=== PATIENT | female | born 1980 | race Caucasian/White ===

== ENCOUNTER 2016-06-23 16:25 | Emergency (ER) | payer BC, OTHER ==
[~2016-06-23] VITALS: Ht 154.9 cm; Wt 68.0 kg
[2016-06-23] MEDS ORDERED: FENT1PAT11 (16:41)
[2016-06-23] MEDS ORDERED: PROM25TA14 (16:41)
[2016-06-23] MEDS ORDERED: OXYC-471 (16:41)
[2016-06-23] MEDS ORDERED: fentaNYL INJECTION 100 MCG/2 ML AMP IVP STA (16:54)
[2016-06-23] MEDS ORDERED: NS IV 1000 ML 1,000 ML IV ONE (16:54)
[2016-06-23] MEDS ORDERED: KETOROLAC 30 MG/ML VIAL IVP STA (16:54)
--- NOTE | 2016-06-23 17:02 | ED Chest Pain ---
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 She is unsure of what the cause is. She does have chronic pain to the left knee and she is on fentanyl and Percocet. 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 She is currently not on any anticoagulation. States the pain is severe and is unable to sit on the bed hardly. She is very tender to touch. Patient is very choosy in her care and her is questioning evaluation and recommendations but ultimately both decided on continuing with evaluation. Timing/Duration: 1 week, getting worse Severity/Quality: moderate, severe Location: central Radiation: back Activities at Onset: none Prior CP/Workup: pulmonary embolism ASA po PERSONAL LINES UNDERWRITER: No NTG SL PERSONAL LINES UNDERWRITER: No Associated Symptoms: No abdominal pain, back pain, No fever/chills, No nausea/ vomiting, No shortness of breath, No weakness (ESPINOZA MAE MD) Allergies and Home Medications Allergies Coded Allergies: Penicillins (Verified Allergy, Unknown, 04/17/09) Home Medications Fentanyl 1 Each Patch.td72, #10 (Reported) Oxycodone HCl/Acetaminophen 1 Each Tablet, #90 (Reported) Promethazine HCl 25 Mg Tablet, #30 (Reported) Review of Systems Constitutional: see HPI, No chills, No fever EENTM: No Symptoms Reported Respiratory: No Symptoms Reported Cardiovascular: See HPI, Chest Pain, Denies Edema Gastrointestinal: Denies Abdominal Pain, Denies Nausea, Denies Vomiting Genitourinary: No Symptoms Reported Musculoskeletal: no symptoms reported Psychiatric/Neurological: Anxiety, Denies Weakness (ESPINOZA MAE MD) All Other Systems Reviewed Negative Unless Noted: Yes (ESPINOZA MAE MD) Past Fqpugtq-Fdxeeu-Fdrvte Hx Patient Social History Alcohol Use: Denies Use Recreational Drug Use: No Smoking Status: Never a Smoker Type Used: Cigarettes Recent Foreign Travel: No Contact w/Someone Who Travel: No Recent Infectious Disease Expo: No (ESPINOZA MAE MD) Surgeries HX Surgeries: Yes Surgeries: Gallbladder, Hysterectomy, Orthopedic (ESPINOZA MAE MD) Respiratory Hx Respiratory Disorders: Yes Respiratory Disorders: Pulmonary Embolism (ESPINOZA MAE MD) Cardiovascular Hx Cardiac Disorders: No (ESPINOZA MAE MD) Neurological Hx Neurological Disorders: No (ESPINOZA MAE MD) Reproductive System Hx Reproductive Disorders: Yes (ESPINOZA MAE MD) Genitourinary Hx Genitourinary Disorders: No (ESPINOZA MAE MD) Gastrointestinal Hx Gastrointestinal Disorders: No (ESPINOZA MAE MD) Musculoskeletal Hx Musculoskeletal Disorders: No (ESPINOZA MAE MD) Endocrine Hx Endocrine Disorders: Yes (ESPINOZA MAE MD) HEENT HX ENT Disorders: No (ESPINOZA MAE MD) Psychosocial Hx Psychiatric Problems: No (ESPINOZA MAE MD) Blood Transfusions Hx Blood Disorders: No (ESPINOZA MAE MD) Reviewed Nursing Assessment Reviewed/Agree w Nursing PMH: Yes (ESPINOZA MAE MD) Family Medical History Significant Family History: No Pertinent Family Hx (ESPINOZA MAE MD) Physical Exam Vital Signs Vital Sign - Last 12Hours 06/23/16 16:38 Temp 98.4 Pulse 93 Resp 16 B/P (MAP) 136/98 Pulse Ox 96 O2 Delivery Room Air (ISABELL TAVARES DO) Vital Signs Capillary Refill : Less Than 3 Seconds (ESPINOZA MAE MD) General Appearance: WD/WN, Moderate Distress (pain related) HEENT: PERRL/EOMI, Pharynx Normal Neck: Non Tender, Supple Respiratory: Lungs Clear, Normal Breath Sounds, Other (very tender to the anterior left chest wall and posterior left chest wall) Cardiovascular: Regular Rate, Rhythm, No Murmur Gastrointestinal: Non Tender, Soft Extremity: Normal Range of Motion, Non Tender Neurologic/Psychiatric: Alert, Oriented x3 Skin: Normal Color, Warm/Dry (ESPINOZA MAE MD) Progress/Results/Core Measures Results/Orders Lab Results Laboratory Tests Test 06/23/16 17:00 Range/Units White Blood Count 5.4 4.3-11.0 10^3/uL Red Blood Count 5.42 4.35-5.85 10^6/uL Hemoglobin 15.1 11.5-16.0 G/DL Hematocrit 44 35-52 % Mean Corpuscular Volume 81 80-99 FL Mean Corpuscular Hemoglobin 28 25-34 PG Mean Corpuscular Hemoglobin Concent 34 32-36 G/DL Red Cell Distribution Width 12.5 10.0-14.5 % Platelet Count 209 130-400 10^3/uL Mean Platelet Volume 9.8 7.4-10.4 FL Neutrophils (%) (Auto) 59 42-75 % Lymphocytes (%) (Auto) 32 12-44 % Monocytes (%) (Auto) 9 0-12 % Eosinophils (%) (Auto) 0 0-10 % Basophils (%) (Auto) 0 0-10 % Neutrophils # (Auto) 3.1 1.8-7.8 X 10^3 Lymphocytes # (Auto) 1.7 1.0-4.0 X 10^3 Monocytes # (Auto) 0.5 0.0-1.0 X 10^3 Eosinophils # (Auto) 0.0 0.0-0.3 10^3/uL Basophils # (Auto) 0.0 0.0-0.1 10^3/uL Sodium Level 144 135-145 MMOL/L Potassium Level 3.2 L 3.6-5.0 MMOL/L Chloride Level 105 98-107 MMOL/L Carbon Dioxide Level 31 21-32 MMOL/L Anion Gap 8 5-14 MMOL/L Blood Urea Nitrogen 4 L 7-18 MG/DL Creatinine 0.85 0.60-1.30 MG/DL Estimat Glomerular Filtration Rate > 60 BUN/Creatinine Ratio 5 Glucose Level 81 70-105 MG/DL Calcium Level 9.7 8.5-10.1 MG/DL Total Bilirubin 1.0 0.1-1.0 MG/DL Aspartate Amino Transf (AST/SGOT) 19 5-34 U/L Alanine Aminotransferase (ALT/SGPT) 61 H 0-55 U/L Alkaline Phosphatase 135 40-136 U/L Troponin I < 0.30 <0.30 NG/ML Total Protein 7.8 6.4-8.2 G/DL Albumin 4.8 H 3.2-4.5 G/DL (ISABELL TAVARES DO) Medications Given in ED Current Medications Medications Dose Ordered Sig/Ravindra Route Start Time Stop Time Status Last Admin Dose Admin Iohexol 150 ml ONCE ONCE IV 06/23/16 18:15 06/23/16 18:23 DC 06/23/16 18:09 150 ML Sodium Chloride 1,000 ml @ 0 mls/hr Q0M ONCE IV 06/23/16 16:54 06/23/16 16:56 DC 06/23/16 17:02 1,000 MLS/HR (ISABELL TAVARES DO) Vital Signs/I&O Vital Sign - Last 12Hours 06/23/16 06/23/16 16:38 16:38 Temp 98.4 Pulse 93 Resp 16 B/P (MAP) 136/98 Pulse Ox 96 O2 Delivery Room Air (ISABELL TAVARES DO) Blood Pressure Mean: 111 Progress Note : Progress Note Seen and evaluated. Initially patient was stating that she didn't want anything for pain but then stated that she is actually not here for pain but needs something for pain because it's hurting really really bad. The initially was not wanting patient to have IVs because it hurts her knee pain but then ultimately acquiesced to allow for evaluation so that we could establish cause of pain or rule out significant abnormalities. IV, labs, EKG, CT chest angiogram, normal saline 1 L bolus, fentanyl 100 g IV and Toradol 30 mg IV ordered. Monitor patient. (ESPINOZA MAE MD) ECG Initial ECG Impression Date: June 23, 2016 Initial ECG Impression Time: 16:34 Initial ECG Rate: 78 Initial ECG Rhythm: Normal Sinus Initial ECG Intervals: Normal Initial ECG Comparisson: No Previous ECG Available Comment Sinus rhythm with normal axis. No evidence of ST elevation GA. Artifact noted especially in inferior leads. No previous available for comparison. Interpreted by me. (ESPINOZA MAE MD) Diagnostic Imaging Diagonstic Imaging: CT Plain Films/CT/US/NM/MRI: chest (unremarkable; no PE) (ISABELL TAVARES DO) Departure Impression Impression: Primary Impression: Non-cardiac chest pain Disposition: 01 HOME, SELF-CARE Condition: Stable Departure-Patient Inst. Decision time for Depature: 18:49 (ISABELL TAVARES DO) Referrals: NO,LOCAL PHYSICIAN (PCP) Primary Care Physician Patient Instructions: Pleuritic Chest Pain (DC) Add. Discharge Instructions: All discharge instructions reviewed with patient and/or family. Voiced understanding. CONTINUE YOUR CURRENT PAIN MEDICATIONS DIRECTED. RECOMMEND ADDING 2 ALEVE EVERY 8 HOURS UNTIL BETTER. ESPINOZA MAE MD June 23, 2016 17:02 ISABELL TAVARES DO June 23, 2016 18:51
[2016-06-23 17:14] LABS: BASOPHILS % (AUTO) 0 % (0-10); EOSINOPHILS % (AUTO) 0 % (0-10); LYMPHOCYTES # (AUTO) 1.7 X 10^3 (1.0-4.0); LYMPHOCYTES % (AUTO) 32 % (12-44); MEAN CORPUSCULAR HEMOGLOBIN 28 PG (25-34); MEAN CORPUSCULAR HGB CONC 34 G/DL (32-36); MEAN CORPUSCULAR VOLUME 81 FL (80-99); MEAN PLATELET VOLUME 9.8 FL (7.4-10.4); MONOCYTES # (AUTO) 0.5 X 10^3 (0.0-1.0); MONOCYTES % (AUTO) 9 % (0-12); NEUTROPHILS # (AUTO) 3.1 X 10^3 (1.8-7.8); NEUTROPHILS % (AUTO) 59 % (42-75); PLATELET COUNT 209 10^3/uL (130-400); RED BLOOD COUNT 5.42 10^6/uL (4.35-5.85); RED CELL DISTRIBUTION WIDTH 12.5 % (10.0-14.5); WHITE BLOOD COUNT 5.4 10^3/uL (4.3-11.0)
[2016-06-23 17:34] LABS: ALANINE AMINOTRANSFERASE 61 U/L (0-55); ALBUMIN 4.8 G/DL (3.2-4.5); ANION GAP 8 MMOL/L (5-14); ASPARTATE AMINO TRANSFERASE 19 U/L (5-34); BLOOD UREA NITROGEN 4 MG/DL (7-18); BUN/CREATININE RATIO 5; CALCIUM 9.7 MG/DL (8.5-10.1); CARBON DIOXIDE 31 MMOL/L (21-32); CHLORIDE 105 MMOL/L (98-107); CREATININE SERUM 0.85 MG/DL (0.60-1.30); GFR ESTIMATED > 60; GLUCOSE 81 MG/DL (70-105); POTASSIUM 3.2 MMOL/L (3.6-5.0); SODIUM 144 MMOL/L (135-145); TOTAL PROTEIN 7.8 G/DL (6.4-8.2)
[2016-06-23 17:39] LABS: TROPONIN I < 0.30 NG/ML (<0.30)
[2016-06-23] MEDS ORDERED: IOHEXOL 350 MG/ML 150 ML (OMNIPAQUE 350) VIAL IV ONE (18:15)
--- NOTE | 2016-06-23 18:33 | Diagnostic Imaging Report ---
PROCEDURE: CT angiography of the chest with contrast. TECHNIQUE: Multiple contiguous axial images were obtained through the chest after uneventful bolus administration of intravenous contrast. Reconstructed CTA MIP acquisitions were also performed. INDICATION: Left-sided chest pain radiating into the left shoulder and back. COMPARISON: None. DISCUSSION: No pulmonary embolus or other acute abnormality identified within the chest. No focal consolidation or suspicious nodule. The thoracic aorta is normal in caliber and configuration. The pulmonary arteries are not dilated. Normal heart size. No pleural or pericardial fluid. No mediastinal, hilar, or axillary adenopathy. Small hiatal hernia. The visualized upper abdomen is unremarkable. No osseous abnormality identified. IMPRESSION: 1. No acute abnormality or pulmonary embolus identified. Dictated by: Dictated on workstation # [id number]
[2016-06-23] MEDS ORDERED: DEXAMETHASONE PF 10 MG/ML (DECADRON) VIAL IV ONE (19:00)
[2016-06-23 19:22] VITALS: BP 121/94
== END 2016-06-23 19:22 | disposition home or self-care (01) ==
LOC: EDUNIT# 16:25 → ER 16:26
DX: R07.89 Other chest pain (principal); Z86.711 Personal history of pulmonary embolism
CPT/HCPCS: 36415; 71275; 80053; 84484; 85025; 96361; 96374; 96375

== ENCOUNTER → 2016-10-30 | Outpatient (CLI) | payer BC ==
[~2016-10-30] MED LIST: FENT1PAT11; METH4TAB PO; OXYC-471; PROM25TA14
--- NOTE | 2016-10-30 11:55 | Diagnostic Imaging Report ---
Digital mammogram bilateral diagnostic. This study was compared to the post ultrasound-guided biopsy mammogram of the right breast performed on 08/13/2014. At this time there are no current complaints. Reportedly the patient 's mother was recently diagnosed with metastatic breast cancer and she is undergoing genetic testing for the breast cancer gene.. The fibroglandular tissue in both breasts is heterogeneously dense. This does limit the sensitivity of this exam. The stereotactic clip in the right breast seen previously is again evident and no different. There is no primary or secondary sign of malignancy noted. A few benign-appearing calcifications are evident in the medial aspect of the left breast. IMPRESSION: 1. There is no evidence for malignancy. 2. If the patient's mother is positive for the breast cancer gene, then I would recommend that the patient also undergo genetic testing. If the patient is positive, then MRI of the breasts would be recommended for further study.. ACR BI-RADS Category 1: Negative. Result letter will be mailed to the patient. Note: At least 10% of breast cancer is not imaged by mammography. Dictated by: Dictated on workstation # [id number]
== END ==
LOC: RAD 08:47
PROVIDERS: ATTEND Obstetrics & Gynecology
DX: Z80.3 Family history of malignant neoplasm of breast (principal); Z98.890 Other specified postprocedural states
CPT/HCPCS: 77066

== ENCOUNTER → 2018-07-04 | Outpatient (CLI) | payer BC ==
--- NOTE | 2018-07-04 10:34 | Diagnostic Imaging Report ---
PROCEDURE: US abdomen complete. TECHNIQUE: Multiple real-time grayscale images were obtained over the abdomen in various projections. INDICATION: Elevated liver enzymes. Liver is normal in size at 16.0 cm. No discrete liver mass is identified. Portal vein is patent and shows normal direction of flow. Gallbladder surgically absent. No biliary duct dilatation is seen. Visualized pancreas is unremarkable. Spleen is normal in size at 12.6 cm. Right and left kidneys are without calculi or hydronephrosis. There is minimal prominence of left renal pelvis. No ascites. Visualized aorta is non-aneurysmal. IVC is unremarkable. IMPRESSION: 1. Essentially unremarkable abdominal ultrasound apart from mild left renal pelvic dilatation. No calculi were visualized. The study is otherwise unremarkable. Dictated by: Dictated on workstation # [id number]
== END ==
LOC: RAD 08:46
PROVIDERS: ATTEND Family Medicine
DX: N28.89 Other specified disorders of kidney and ureter (principal); R79.89 Other specified abnormal findings of blood chemistry; Z90.49 Acquired absence of other specified parts of digestive tract
CPT/HCPCS: 76700

== ENCOUNTER → 2018-11-23 | Outpatient (CLI) | payer BC ==
--- NOTE | 2018-11-23 15:12 | Diagnostic Imaging Report ---
INDICATION: Low back pain. No known injuries. EXAMINATION: Lumbar spine MRI dated 11/23/2018. COMPARISON: None. FINDINGS: There is normal height and alignment of the vertebral bodies. The tip of the conus is unremarkable in appearance and location. At L1-L2, there is minimal bilateral facet hypertrophy with no central or neuroforaminal stenosis. Similar findings are noted at L2-L3 and L3-L4. At the L4-L5 level, there is bilateral facet and ligamentum flavum hypertrophy. Minimal disc desiccation is seen. There is a very mild broad-based bulging disc which flattens the ventral thecal sac. No central stenosis is seen. Bilateral mild neuroforaminal narrowing is seen. L5-S1: There is bilateral facet hypertrophy. No significant bulging disc material. No central stenosis. The neural foramina appear patent. The visualized intraabdominal structures demonstrate atrophy of the left kidney, possibly congenital. Correlate with history. The renal pelves are bilaterally prominent in appearance, perhaps due to extrarenal pelves. The visualized aspect of the common duct is slightly dilated for the patient's age. This measures 7 mm. IMPRESSION: 1. Mild degenerative findings in the lower lumbar spine as above. 2. Possibly congenitally small or atrophic left kidney, see above discussion. 3. Prominent common bile duct. Sonography of the right upper quadrant could better characterize this finding as clinically indicated. Dictated by: Dictated on workstation # [id number]
== END ==
LOC: RAD 14:03
PROVIDERS: ATTEND Family Medicine
DX: M51.26 Other intervertebral disc displacement, lumbar region (principal); M48.061 Spinal stenosis, lumbar region without neurogenic claudication; M47.816 Spondylosis without myelopathy or radiculopathy, lumbar region; N26.1 Atrophy of kidney (terminal)
CPT/HCPCS: 72148

== ENCOUNTER 2019-08-27 22:37 | Emergency (ER) | payer BC ==
[~2019-08-27] VITALS: Ht 154.9 cm; Wt 65.8 kg
[2019-08-27] MEDS ORDERED: ONDANSETRON 4 MG/2 ML (SDV) Z0FRAN IVP ONE (23:00)
--- NOTE | 2019-08-27 23:09 | ED Chest Pain ---
General Chief Complaint: Respiratory Problems Stated Complaint: CP SOA Nursing Triage Note: PT AMBULATE TO ROOM WITH C/O SOA, HEAVYNESS ON CHEST X6 WEEKS. PT STATES SYMPTOMS ARE WORSE TONIGHT. PT REPORTS HX OF PE. Nursing Sepsis Screen: No Definite Risk Source: patient Exam Limitations: no limitations History of Present Illness Date Seen by Provider: Aug 27, 2019 Time Seen by Provider: 22:55 Initial Comments This 38 year old woman presents to the ER with complaints of SOA, chest heaviness, headache, mild cough and nausea. Symptoms have been present for about 6 weeks but have been acutely worse since about 15:30. She cannot identify any alleviating or exacerbation factor. Heaviness is worse with palpation of the chest. 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 She was COVID tested by Dr. Hinton in [place] 9 days ago because of headache and nausea but she does not know the results yet. She has been isolating since then. She does not smoke and denies any cardiopulmonary pathology. 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 She is also concerned about her blood pressure being a little high. Slight sore throat and slight cough are new today. Allergies and Home Medications Allergies Coded Allergies: Penicillins (Verified Allergy, Unknown, 04/17/09) sulfamethoxazole (Verified Allergy, Unknown, 08/27/19) tramadol (Verified Allergy, Unknown, 08/27/19) trimethoprim (Verified Allergy, Unknown, 08/27/19) Home Medications Methylprednisolone 4 Mg Tab.ds.pk, 4 MG PO UD Prescribed by: TIM JESSICA on 12/24/162043 Patient Home Medication List Home Medication List Reviewed: Yes Review of Systems Review of Systems Constitutional: no symptoms reported EENTM: See HPI Respiratory: See HPI Cardiovascular: See HPI Gastrointestinal: See HPI Genitourinary: No Symptoms Reported Musculoskeletal: no symptoms reported Skin: no symptoms reported Psychiatric/Neurological: Anxiety Endocrine: No Symptoms Reported Hematologic/Lymphatic: No Symptoms Reported Past Cnaoazl-Bfqoqp-Eqjuft Hx Past Med/Social Hx: Reviewed Nursing Past Med/Soc Hx Patient Social History Alcohol Use: Denies Use Recreational Drug Use: No Smoking Status: Never a Smoker Type Used: Cigarettes 2nd Hand Smoke Exposure: No Recent Foreign Travel: No Contact w/Someone Who Travel: No Recent Infectious Disease Expo: No Recent Hopitalizations: Yes Physical Abuse: No Sexual Abuse: No Mistreated: No Fear: No Past Medical History Surgeries: Yes (arthroscopic left knee surgery) Gallbladder, Hysterectomy, Orthopedic Respiratory: Yes Pulmonary Embolism Cardiac: Yes Deep Vein Thrombosis Neurological: Yes (postop RSD of left leg) : No Reproductive Disorders: Yes (fibroids) Female Reproductive Disorders: Endometriosis Gastrointestinal: No Musculoskeletal: No Endocrine: Yes (gestational DM) HEENT: No Cancer: No Psychosocial: No Integumentary: No Blood Disorders: No Family Medical History No Pertinent Family Hx Physical Exam Vital Signs Vital Signs - First Documented 08/27/19 08/28/19 22:54 01:13 Temp 37.3 Pulse 92 Resp 18 B/P (MAP) 132/103 (113) Pulse Ox 96 O2 Delivery Room Air Capillary Refill : Less Than 3 Seconds Height, Weight, BMI Height: 5'1.00" Weight: 150lbs. 4.0oz. [id number]; 27.00 BMI Method:Stated General Appearance: WD/WN, Anxious HEENT: PERRL/EOMI, TMs Normal, Normal ENT Inspection, Pharynx Normal Neck: Normal Inspection Respiratory: Lungs Clear, Normal Breath Sounds, No Accessory Muscle Use, No Respiratory Distress Cardiovascular: Regular Rate, Rhythm, No Edema, No Murmur Gastrointestinal: Normal Bowel Sounds, Non Tender, Soft Extremity: Normal Inspection, Non Tender, No Calf Tenderness, No Pedal Edema, Other (chronic tenderness in the left leg from RSD) Neurologic/Psychiatric: Alert, Oriented x3, No Motor/Sensory Deficits, Normal Mood/Affect, counter 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 II-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 Norm as Tested Skin: Normal Color, Warm/Dry Progress/Results/Core Measures Results/Orders Lab Results Laboratory Tests Test 08/27/19 23:06 08/27/19 23:50 Range/Units White Blood Count 5.3 4.3-11.0 10^3/uL Red Blood Count 4.89 4.35-5.85 10^6/uL Hemoglobin 14.2 11.5-16.0 G/DL Hematocrit 41 35-52 % Mean Corpuscular Volume 85 80-99 FL Mean Corpuscular Hemoglobin 29 25-34 PG Mean Corpuscular Hemoglobin Concent 34 32-36 G/DL Red Cell Distribution Width 12.7 10.0-14.5 % Platelet Count 178 130-400 10^3/uL Mean Platelet Volume 9.9 7.4-10.4 FL Neutrophils (%) (Auto) 49 42-75 % Lymphocytes (%) (Auto) 41 12-44 % Monocytes (%) (Auto) 9 0-12 % Eosinophils (%) (Auto) 0 0-10 % Basophils (%) (Auto) 1 0-10 % Neutrophils # (Auto) 2.6 1.8-7.8 X 10^3 Lymphocytes # (Auto) 2.2 1.0-4.0 X 10^3 Monocytes # (Auto) 0.5 0.0-1.0 X 10^3 Eosinophils # (Auto) 0.0 0.0-0.3 10^3/uL Basophils # (Auto) 0.0 0.0-0.1 10^3/uL Prothrombin Time 12.6 12.2-14.7 SEC INR Comment 0.9 0.8-1.4 Activated Partial Thromboplast Time 32 24-35 SEC D-Dimer 0.75 H 0.00-0.49 UG/ML Sodium Level 142 135-145 MMOL/L Potassium Level 3.9 3.6-5.0 MMOL/L Chloride Level 105 98-107 MMOL/L Carbon Dioxide Level 25 21-32 MMOL/L Anion Gap 12 5-14 MMOL/L Blood Urea Nitrogen 4 L 7-18 MG/DL Creatinine 0.82 0.60-1.30 MG/DL Estimat Glomerular Filtration Rate > 60 BUN/Creatinine Ratio 5 Glucose Level 93 70-105 MG/DL Calcium Level 9.5 8.5-10.1 MG/DL Corrected Calcium 9.4 8.5-10.1 MG/DL Magnesium Level 2.1 1.6-2.4 MG/DL Total Bilirubin 0.4 0.1-1.0 MG/DL Aspartate Amino Transf (AST/SGOT) 38 H 5-34 U/L Alanine Aminotransferase (ALT/SGPT) 52 0-55 U/L Alkaline Phosphatase 149 H 40-136 U/L Myoglobin 24.8 10.0-92.0 NG/ML Troponin I < 0.028 <0.028 NG/ML Total Protein 6.9 6.4-8.2 GM/DL Albumin 4.1 3.2-4.5 GM/DL My Orders Orders - PEE HUNTER MD Cbc With Automated Diff (08/27/19 22:59) Magnesium (08/27/19 22:59) Chest 1 View, Ap/Pa Only (08/27/19 22:59) Ekg Tracing (08/27/19 22:59) Comprehensive Metabolic Panel (08/27/19 22:59) Myoglobin Serum (08/27/19 22:59) Protime With Inr (08/27/19 22:59) Partial Thromboplastin Time (08/27/19 22:59) O2 (08/27/19 22:59) Monitor-Rhythm Ecg Trace Only (08/27/19 22:59) Ed Iv/Invasive Line Start (08/27/19 22:59) Ondansetron Injection (Zofran Injectio (08/27/19 23:00) Lidocaine 2% Viscous 15 Ml (Xylocaine Vi (08/27/19 23:15) Antacid Suspension (Mylanta Suspension (08/27/19 23:15) Troponin I (08/27/19 23:06) Fibrin Degradation Products (08/27/19 23:06) Coronavirus Sars-Cov-2 So 2018 (08/27/19 23:50) Ct Angio Chest W (08/28/19 00:01) Medications Given in ED Current Medications Medications Dose Ordered Sig/Ravindra Route Start Time Stop Time Status Last Admin Dose Admin Al Hydrox/Mg Hydrox/Simethicone 30 ml ONCE ONCE PO 08/27/19 23:15 08/27/19 23:16 DC 08/27/19 23:23 30 ML Lidocaine HCl 15 ml ONCE ONCE PO 08/27/19 23:15 08/27/19 23:16 DC 08/27/19 23:23 15 ML Ondansetron HCl 4 mg ONCE ONCE IVP 08/27/19 23:00 08/27/19 23:01 DC 08/27/19 23:23 4 MG Vital Signs/I&O 08/27/19 08/28/19 22:54 01:13 Temp 37.3 Pulse 92 92 Resp 18 17 B/P (MAP) 132/103 (113) 118/88 Pulse Ox 96 O2 Delivery Room Air Room Air Blood Pressure Mean: 113 Progress Progress Note : Progress Note Workup was unremarkable except for mildly elevated d-dimer. This prompted CT angiogram, especially given her history of prior PE. CT angiogram was negative for PE. COVID-19 swab was obtained because of patient's new symptoms of cough and mild sore throat this morning. Patient's pain was atypical and reproducible with palpation. She was discharged outpatient follow-up. Patient was concerned about her blood pressure but her blood pressures were unremarkable. Initial ECG Impression Date: Aug 27, 2019 Initial ECG Impression Time: 23:04 Initial ECG Rate: 83 Initial ECG Rhythm: Normal Sinus Initial ECG Intervals: Normal Initial ECG Impression: Normal Comment Normal sinus rhythm with no ST elevation or depression. No abnormal intervals or axis deviation. Diagnostic Imaging Diagonstic Imaging: Xray Plain Films/CT/US/NM/MRI: chest Comments Chest x-ray viewed by me and report not yet available. No acute abnormalities appreciated. Diagonstic Imaging: CT Plain Films/CT/US/NM/MRI: chest Comments CT angiogram chest viewed by me and [facility] report reviewed. No pulmonary emboli or other acute pathology identified. Departure Impression Primary Impression: Atypical chest pain Additional Impressions: Cough Acute headache Qualified Codes: R51 - Headache Disposition: HOME, SELF-CARE Condition: Stable Departure-Patient Inst. Referrals: CONG HINTON MD (PCP/Family) Primary Care Physician Patient Instructions: COVID19, Chest Pain Add. Discharge Instructions: Follow-up with your primary care provider as soon as possible. Please call this morning for an appointment time. Continue your usual medications as prescribed. You may add Tylenol (acetaminophen) up to 1000 mg every 6 hours as needed for pain. Add ibuprofen up to 600 mg every 6 hours sparingly for pain not controlled by Tylenol. Return to care if you have worsening or new symptoms that require urgent care. Home isolate until the results of your COVID-19 testing are known. All discharge instructions reviewed with patient and/or family. Voiced understanding. PEE HUNTER MD Aug 27, 2019 23:09
[2019-08-27 23:14] LABS: BASOPHILS % (AUTO) 1 % (0-10); EOSINOPHILS % (AUTO) 0 % (0-10); HEMATOCRIT 41 % (35-52); HEMOGLOBIN 14.2 G/DL (11.5-16.0); LYMPHOCYTES # (AUTO) 2.2 X 10^3 (1.0-4.0); LYMPHOCYTES % (AUTO) 41 % (12-44); MEAN CORPUSCULAR HEMOGLOBIN 29 PG (25-34); MEAN CORPUSCULAR HGB CONC 34 G/DL (32-36); MEAN CORPUSCULAR VOLUME 85 FL (80-99); MEAN PLATELET VOLUME 9.9 FL (7.4-10.4); MONOCYTES # (AUTO) 0.5 X 10^3 (0.0-1.0); MONOCYTES % (AUTO) 9 % (0-12); NEUTROPHILS # (AUTO) 2.6 X 10^3 (1.8-7.8); NEUTROPHILS % (AUTO) 49 % (42-75); PLATELET COUNT 178 10^3/uL (130-400); RED CELL DISTRIBUTION WIDTH 12.7 % (10.0-14.5); WHITE BLOOD COUNT 5.3 10^3/uL (4.3-11.0)
[2019-08-27] MEDS ORDERED: LIDOCAINE 2% VISCOUS 15 ML UDC PO ONE (23:15)
[2019-08-27] MEDS ORDERED: ANTACID SUSP 30 ML UDC (MYLANTA) PO ONE (23:15)
[2019-08-27 23:33] LABS: ALBUMIN 4.1 GM/DL (3.2-4.5); CHLORIDE 105 MMOL/L (98-107); POTASSIUM 3.9 MMOL/L (3.6-5.0); SODIUM 142 MMOL/L (135-145)
[2019-08-27 23:35] LABS: CALCIUM 9.5 MG/DL (8.5-10.1)
[2019-08-27 23:36] LABS: GLUCOSE 93 MG/DL (70-105); TOTAL PROTEIN 6.9 GM/DL (6.4-8.2)
[2019-08-27 23:37] LABS: CARBON DIOXIDE 25 MMOL/L (21-32)
[2019-08-27 23:38] LABS: BILIRUBIN,TOTAL 0.4 MG/DL (0.1-1.0)
[2019-08-27 23:39] LABS: ALKALINE PHOSPHATASE 149 U/L (40-136)
[2019-08-27 23:40] LABS: CREATININE SERUM 0.82 MG/DL (0.60-1.30); GFR ESTIMATED > 60
[2019-08-27 23:41] LABS: BUN/CREATININE RATIO 5
[2019-08-27 23:42] LABS: ALANINE AMINOTRANSFERASE 52 U/L (0-55); INR 0.9 (0.8-1.4); MAGNESIUM 2.1 MG/DL (1.6-2.4)
[2019-08-27 23:50] LABS: FIBRIN DEGRADATION PRODUCTS 0.75 UG/ML (0.00-0.49)
[2019-08-27 23:51] LABS: PROTHROMBIN TIME PATIENT 12.6 SEC (12.2-14.7)
[2019-08-28 01:13] VITALS: BP 118/88
--- NOTE | 2019-08-28 05:24 | Diagnostic Imaging Report ---
EXAMINATION: AP upright portable chest INDICATION: Chest heaviness. Patient is under Covid precautions. COMPARISON: None available. FINDINGS: The lungs are clear and the pulmonary vasculature is normal. No pneumothorax or pleural effusion. Heart size and mediastinal contours are normal. No acute osseous abnormality is identified. Surgical clips are demonstrated in the right upper abdominal quadrant. IMPRESSION: No radiographic evidence of acute chest disease. Dictated by: Dictated on workstation # [id number]
--- NOTE | 2019-08-28 06:35 | Diagnostic Imaging Report ---
PROCEDURE: CT angiography of the chest with contrast. TECHNIQUE: Multiple contiguous axial images were obtained through the chest after uneventful bolus administration of intravenous contrast. 3D reconstructed CTA MIP acquisitions were also performed. Auto Exposure Controls were utilized during the CT exam to meet ALARA standards for radiation dose reduction. INDICATION: Shortness of breath and chest heaviness. COMPARISONS: CTA chest performed on 06/23/2016. FINDINGS: CT ANGIOGRAM: No pulmonary embolism. Normal caliber pulmonary arteries. No acute aortic abnormality seen on this study performed without cardiac gating. TRACHEA AND MAIN BRONCHI: Patent without evidence of tracheal or endobronchial lesion. LUNGS AND PLEURA: The lungs are clear, without focal consolidation, suspicious nodule or pulmonary mass. No pleural effusion or pneumothorax. MEDIASTINUM AND CHILO: Visualized thyroid gland is normal. No mediastinal or hilar lymphadenopathy. Esophagus is nondistended. HEART AND VESSELS: Heart is normal in size. No pericardial effusion. Thoracic aorta is nonaneurysmal. DIAPHRAGM AND UPPER ABDOMEN: Patient is status post cholecystectomy. There is marked atrophy of the left kidney, also seen on prior exam. The diaphragm and visualized upper abdomen are otherwise unremarkable. CHEST WALL: Unremarkable. BONES: No acute osseous abnormality. IMPRESSION: No evidence of pulmonary embolism. No acute cardiopulmonary process. Findings are in agreement with initial teleradiology report. Dictated by: Dictated on workstation # [id number]
== END 2019-08-28 01:06 | disposition home or self-care (01) ==
LOC: EDUNIT# 22:37 → ER 22:38
DX: R07.89 Other chest pain (principal); R05 Cough; R51 Headache; G90.522 Complex regional pain syndrome I of left lower limb; N80.9 Endometriosis, unspecified; Z86.718 Personal history of other venous thrombosis and embolism; Z86.711 Personal history of pulmonary embolism; Z88.0 Allergy status to penicillin; Z88.2 Allergy status to sulfonamides; Z88.6 Allergy status to analgesic agent; Z88.8 Allergy status to other drugs, medicaments and biological substances; Z20.828 Contact with and (suspected) exposure to other viral communicable diseases
CPT/HCPCS: 71045; 71275; 80053; 83735; 83874; 84484; 85025; 85379; 85610; 85730; 93005; 93041; 99284; U0002; 36415; 87635

== ENCOUNTER 2020-06-02 17:46 | Emergency (ER) | payer BC ==
[~2020-06-02] VITALS: Ht 154 cm; Wt 68.0 kg
[~2020-06-02 17:46] MED LIST changes: -OXYC-471; +OXYC1TAB11
[2020-06-02] MEDS ORDERED: KETOROLAC 30 MG/ML VIAL IVP STA (18:11)
[2020-06-02] MEDS ORDERED: NS IV 1000 ML 1,000 ML IV STA (18:11)
[2020-06-02] MEDS ORDERED: ONDANSETRON 4 MG/2 ML (SDV) Z0FRAN IVP STA (18:11)
[2020-06-02 18:15] LABS: HEMATOCRIT 42 % (35-52); MEAN CORPUSCULAR HEMOGLOBIN 28 PG (25-34); MEAN CORPUSCULAR HGB CONC 34 G/DL (32-36); MEAN CORPUSCULAR VOLUME 83 FL (80-99); MEAN PLATELET VOLUME 9.6 FL (7.4-10.4); PLATELET COUNT 163 10^3/uL (130-400); WHITE BLOOD COUNT 7.4 10^3/uL (4.3-11.0)
[2020-06-02 18:16] LABS: BASOPHILS # (AUTO) 0.1 10^3/uL (0.0-0.1); BASOPHILS % (AUTO) 1 % (0-10); EOSINOPHILS % (AUTO) 0 % (0-10); LYMPHOCYTES # (AUTO) 2.7 X 10^3 (1.0-4.0); LYMPHOCYTES % (AUTO) 37 % (12-44); MONOCYTES # (AUTO) 0.7 X 10^3 (0.0-1.0); MONOCYTES % (AUTO) 9 % (0-12); NEUTROPHILS # (AUTO) 3.8 X 10^3 (1.8-7.8); NEUTROPHILS % (AUTO) 51 % (42-75)
[2020-06-02 18:27] LABS: INR 0.9 (0.8-1.4); PROTHROMBIN TIME PATIENT 12.7 SEC (12.2-14.7)
--- NOTE | 2020-06-02 18:31 | Diagnostic Imaging Report ---
INDICATION: Hypertension and cardiac palpitation. EXAMINATION: Upright AP view of the chest was obtained. COMPARISON: Study of 08/27/2019. Heart size and pulmonary vascularity are within normal limits and the lungs are clear, bilaterally. IMPRESSION: Unremarkable chest. Dictated by: Dictated on workstation # [id number]
--- NOTE | 2020-06-02 18:32 | Diagnostic Imaging Report ---
PROCEDURE: CT head without contrast. TECHNIQUE: Multiple contiguous axial images were obtained through the brain without the use of intravenous contrast. Auto Exposure Controls were utilized during the CT exam to meet ALARA standards for radiation dose reduction. INDICATION: Hypertension and paresthesia. CT HEAD: CT images of the head were obtained. Ventricles and sulci are within normal limits for size. There is no intracranial hemorrhage identified. There is no abnormal mass effect or shift of midline structures. IMPRESSION: Unremarkable CT of the head. Dictated by: Dictated on workstation # [id number]
[2020-06-02 18:35] LABS: ALANINE AMINOTRANSFERASE 124 U/L (0-55); ALBUMIN 4.3 GM/DL (3.2-4.5); ALKALINE PHOSPHATASE 134 U/L (40-136); BILIRUBIN,TOTAL 0.6 MG/DL (0.1-1.0); BUN/CREATININE RATIO 15; CALCIUM 9.4 MG/DL (8.5-10.1); CARBON DIOXIDE 28 MMOL/L (21-32); CHLORIDE 102 MMOL/L (98-107); CREATININE SERUM 0.89 MG/DL (0.60-1.30); GFR ESTIMATED > 60; GLUCOSE 126 MG/DL (70-105); LIPASE 31 U/L (8-78); MAGNESIUM 2.1 MG/DL (1.6-2.4); POTASSIUM 3.3 MMOL/L (3.6-5.0); SODIUM 139 MMOL/L (135-145); TOTAL PROTEIN 6.6 GM/DL (6.4-8.2)
[2020-06-02 18:46] LABS: BACTERIA,URINE TRACE /HPF; BILIRUBIN,URINE NEGATIVE (NEGATIVE); CLARITY,URINE CLEAR; COLOR,URINE YELLOW; GLUCOSE, URINE (UA) NEGATIVE (NEGATIVE); KETONES,URINE NEGATIVE (NEGATIVE); LEUKOCYTE ESTERASE ,URINE TRACE (NEGATIVE); NITRITE,URINE NEGATIVE (NEGATIVE); PROTEIN,URINE NEGATIVE (NEGATIVE); RBC,URINE RARE /HPF; WBC,URINE 0-2 /HPF
--- NOTE | 2020-06-02 18:49 | ED General ---
General Chief Complaint: General Problems/Pain Stated Complaint: NECK/BACK/SHOULDER/HEAD PAIN | NAUSEA | NUMB HANDS Nursing Triage Note: PT HAS MULTIPLE COMPLAINTS. HEAD FOR LAST 24 HOURS. JUST STATES SHE DOESNT FEEL GOOD AND THAT HER BLOOD PRESSURE HAS BEEN UP THE LAST 24 HOURS. BOTH SIDES OF NECK HURT. Nursing Sepsis Screen: No Definite Risk Source of Information: Patient History of Present Illness Date Seen by Provider: Jun 02, 2020 Time Seen by Provider: 17:56 Initial Comments 39-year-old female presenting with complaints of headache in the occipital area, burning pain in her chest into her neck, right upper quadrant abdominal pain, elevated blood pressure, and "just not feeling right". She has a history of renal cancer and had partial nephrectomy on the right last fall. She states that her left kidney does not work per her report. She has had a history of prior pulmonary embolism that required high-dose warfarin for 8 months. She does have a history of migraines and headaches but since having her hysterectomy she hardly ever gets headaches now. She has had some nausea but no vomiting. 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 She presents after 24 hours of symptoms because she was not feeling right and had these other symptoms going on. She felt like something was wrong and wanted to be evaluated. She recently had seen her primary provider Dr. Whalen, he had told her that she had elevated cholesterol and elevated thyroid but they would just watch it for now Allergies and Home Medications Allergies Coded Allergies: Penicillins (Verified Allergy, Unknown, 04/17/09) sulfamethoxazole (Verified Allergy, Unknown, 08/27/19) tramadol (Verified Allergy, Unknown, 08/27/19) trimethoprim (Verified Allergy, Unknown, 08/27/19) Home Medications Methylprednisolone 4 Mg Tab.ds.pk, 4 MG PO UD Prescribed by: TIM JESSICA on 12/24/162043 Patient Home Medication List Home Medication List Reviewed: Yes Review of Systems Review of Systems Constitutional: No chills, No diaphoresis, No fever; malaise EENTM: No ear discharge, No hearing loss, No ear pain, No blurred vision, No epistaxis, No nose congestion Respiratory: No cough, No short of breath Cardiovascular: chest pain (Burning pain in her chest radiating into her neck) Gastrointestinal: abdominal pain (RUQ. Tender to palpation in the right upper quadrant especially around where her incision from partial nephrectomy is located), nausea; No vomiting Genitourinary: no symptoms reported Musculoskeletal: neck pain (Pain in the back of her neck going down to the middle of her back between her shoulder blades. Also having tenderness in the anterior portion of her neck bilaterally) Skin: no symptoms reported Psychiatric/Neurological: Anxiety, Headache; Denies Numbness, Denies Paresthesia, Denies Weakness Hematologic/Lymphatic: Blood Clots (History of blood clots and PE) Past Xzstxkd-Eanrme-Mulzhd Hx Past Med/Social Hx: Reviewed Nursing Past Med/Soc Hx Patient Social History Alcohol Use: Denies Use Smoking Status: Never a Smoker Type Used: Cigarettes 2nd Hand Smoke Exposure: No Recent Infectious Disease Expo: No Recent Hopitalizations: Yes Past Medical History Surgeries: Yes (arthroscopic left knee surgery) Gallbladder, Hysterectomy, Nephrectomy, Orthopedic Respiratory: Yes Pulmonary Embolism Cardiac: Yes Deep Vein Thrombosis Neurological: Yes (postop RSD of left leg) Reproductive Disorders: Yes (fibroids) Female Reproductive Disorders: Endometriosis Gastrointestinal: No Musculoskeletal: No Endocrine: Yes (gestational DM) HEENT: No Cancer: Yes Kidney Did You Recieve Any Treatments: Yes What Type of Treatment Did You: Surgical Intervention Psychosocial: No Integumentary: No Blood Disorders: No Family Medical History No Pertinent Family Hx Physical Exam Vital Signs Vital Signs - First Documented 06/02/20 17:50 Temp 36.5 Pulse 88 Resp 18 B/P (MAP) 148/70 (96) Pulse Ox 98 O2 Delivery Room Air Capillary Refill : Less Than 3 Seconds Height, Weight, BMI Height: 5'1.00" Weight: 150lbs. 4.0oz. 68.035241yc; 28.00 BMI Method:Stated General Appearance: WD/WN, Anxious HEENT: PERRL/EOMI, Pharynx Normal Neck: Full Range of Motion, Supple, Tender Lateral (Anterior neck tenderness bilaterally.), Tender Midline (Tender in the posterior neck radiating down between her shoulder blades) Respiratory: No Chest Non Tender (Tender to palpation in the posterior neck and spine between her shoulder blades); Lungs Clear, Normal Breath Sounds, No Accessory Muscle Use, No Respiratory Distress Cardiovascular: Regular Rate, Rhythm, No Murmur, Normal Peripheral Pulses Gastrointestinal: Normal Bowel Sounds, No Pulsatile Mass, Soft; No Distended, No Guarding, No Rebound; Tenderness (Right upper quadrant tenderness to palpation) Rectal: Deferred Extremity: Normal Capillary Refill, No Pedal Edema Neurologic/Psychiatric: Alert, Oriented x3, No Motor/Sensory Deficits, 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 II- XII Norm as Tested Skin: Normal Color, Warm/Dry Progress/Results/Core Measures Suspected Sepsis Recent Fever Within 48 Hours: No Infection Criteria Present: None New/Unexplained Altered Menta: No Sepsis Screen: No Definite Risk SIRS Temperature: Pulse: 88 Respiratory Rate: 18 Laboratory Tests 06/02/20 18:08: White Blood Count 7.4 Blood Pressure 148 /70 Mean: 96 Laboratory Tests 06/02/20 18:08: Creatinine 0.89, INR Comment 0.9, Platelet Count 163, Total Bilirubin 0.6 Results/Orders Lab Results Laboratory Tests Test 06/02/20 18:08 06/02/20 18:36 Range/Units White Blood Count 7.4 4.3-11.0 10^3/uL Red Blood Count 5.03 4.35-5.85 10^6/uL Hemoglobin 14.0 11.5-16.0 G/DL Hematocrit 42 35-52 % Mean Corpuscular Volume 83 80-99 FL Mean Corpuscular Hemoglobin 28 25-34 PG Mean Corpuscular Hemoglobin Concent 34 32-36 G/DL Red Cell Distribution Width 12.3 10.0-14.5 % Platelet Count 163 130-400 10^3/uL Mean Platelet Volume 9.6 7.4-10.4 FL Immature Granulocyte % (Auto) 2 % Neutrophils (%) (Auto) 51 42-75 % Lymphocytes (%) (Auto) 37 12-44 % Monocytes (%) (Auto) 9 0-12 % Eosinophils (%) (Auto) 0 0-10 % Basophils (%) (Auto) 1 0-10 % Neutrophils # (Auto) 3.8 1.8-7.8 X 10^3 Lymphocytes # (Auto) 2.7 1.0-4.0 X 10^3 Monocytes # (Auto) 0.7 0.0-1.0 X 10^3 Eosinophils # (Auto) 0.0 0.0-0.3 10^3/uL Basophils # (Auto) 0.1 0.0-0.1 10^3/uL Immature Granulocyte # (Auto) 0.2 H 0.0-0.1 10^3/uL Prothrombin Time 12.7 12.2-14.7 SEC INR Comment 0.9 0.8-1.4 Activated Partial Thromboplast Time 28 24-35 SEC Sodium Level 139 135-145 MMOL/L Potassium Level 3.3 L 3.6-5.0 MMOL/L Chloride Level 102 98-107 MMOL/L Carbon Dioxide Level 28 21-32 MMOL/L Anion Gap 9 5-14 MMOL/L Blood Urea Nitrogen 13 7-18 MG/DL Creatinine 0.89 0.60-1.30 MG/DL Estimat Glomerular Filtration Rate > 60 BUN/Creatinine Ratio 15 Glucose Level 126 H 70-105 MG/DL Calcium Level 9.4 8.5-10.1 MG/DL Corrected Calcium 9.2 8.5-10.1 MG/DL Magnesium Level 2.1 1.6-2.4 MG/DL Total Bilirubin 0.6 0.1-1.0 MG/DL Aspartate Amino Transf (AST/SGOT) 57 H 5-34 U/L Alanine Aminotransferase (ALT/SGPT) 124 H 0-55 U/L Alkaline Phosphatase 134 40-136 U/L Troponin I < 0.30 <0.30 NG/ML Pro-B-Type Natriuretic Peptide 108.1 H <75.0 PG/ML Total Protein 6.6 6.4-8.2 GM/DL Albumin 4.3 3.2-4.5 GM/DL Lipase 31 8-78 U/L Urine Color YELLOW Urine Clarity CLEAR Urine pH 6.0 5-9 Urine Specific [place] <=1.005 1.016-1.022 Urine Protein NEGATIVE NEGATIVE Urine Glucose (UA) NEGATIVE NEGATIVE Urine Ketones NEGATIVE NEGATIVE Urine Nitrite NEGATIVE NEGATIVE Urine Bilirubin NEGATIVE NEGATIVE Urine Urobilinogen 0.2 < = 1.0 MG/DL Urine Leukocyte Esterase TRACE H NEGATIVE Urine RBC (Auto) NEGATIVE NEGATIVE Urine RBC RARE /HPF Urine WBC 0-2 /HPF Urine Squamous Epithelial Cells 2-5 /HPF Urine Crystals NONE /LPF Urine Bacteria TRACE /HPF Urine Casts NONE /LPF Urine Mucus NEGATIVE /LPF Urine Culture Indicated NO My Orders Orders - BRANDON GRACIA MD Cbc With Automated Diff (06/02/20 18:09) Magnesium (06/02/20 18:09) Chest 1 View Ap/Pa Only (06/02/20 18:09) Ekg Tracing (06/02/20 18:09) Comprehensive Metabolic Panel (06/02/20 18:09) Protime With Inr (06/02/20 18:09) Partial Thromboplastin Time (06/02/20 18:09) O2 (06/02/20 18:09) Monitor-Rhythm Ecg Trace Only (06/02/20 18:09) Ed Iv/Invasive Line Start (06/02/20 18:09) Lipase (06/02/20 18:09) Troponin I Fs (06/02/20 18:09) Probnp Fs (06/02/20 18:09) Ct Head Wo (06/02/20 18:09) Ua Culture If Indicated (06/02/20 18:09) Ns Iv 1000 Ml (Sodium Chloride 0.9%) (06/02/20 18:11) Ketorolac Injection (Toradol Injection) (06/02/20 18:11) Ondansetron Injection (Zofran Injectio (06/02/20 18:11) Iohexol Injection (Omnipaque 350 Mg/Ml 1 (06/02/20 19:00) Received Contrast (Hold Metformin- Contr (06/02/20 19:00) Sodium Chloride Flush (Catheter Flush Sy (06/02/20 19:00) Ns (Ivpb) (Sodium Chloride 0.9% Ivpb Bag (06/02/20 19:00) Ct Aye Chest/Noang Abd-Pelv W (06/02/20 18:46) Medications Given in ED Current Medications Medications Dose Ordered Sig/Ravindra Route Start Time Stop Time Status Last Admin Dose Admin Iohexol 85 ml ONCE ONCE IV 06/02/20 19:00 06/02/20 19:01 DC 06/02/20 19:18 85 ML Sodium Chloride 10 ml NEEDED PRN IV 06/02/20 19:00 06/02/20 19:18 10 ML Sodium Chloride 100 ml ONCE ONCE IV 06/02/20 19:00 06/02/20 19:01 DC 06/02/20 19:18 100 ML Vital Signs/I&O 06/02/20 06/02/20 17:50 19:47 Temp 36.5 Pulse 88 88 Resp 18 16 B/P (MAP) 148/70 (96) 121/84 Pulse Ox 98 98 O2 Delivery Room Air Room Air Capillary Refill : Less Than 3 Seconds Blood Pressure Mean: 96 Progress Note #1: Progress Note With multiple vague complaints will order blood work to check blood count, electrolytes, kidney and liver function, cardiac enzymes, urinalysis. Ordered CT scan of her head to evaluate the occipital headache. Chest x-ray for her burning sensation in the chest. Will give IV fluids for hydration, low-dose Toradol to help with occipital headache and abdominal pain, and Zofran 4 mg IV for nausea. Monitor on the cardiac ekg monitor tech since patient reports palpitations and heart racing. Initial telemetry monitoring shows sinus rhythm with a heart rate in the 80s. Differential diagnosis would include migraine headache, hypothyroidism, anxiety, myocardial infarction, pulmonary embolism, pneumonia, UTI Progress Note #2: Progress Note Labs are stable without acute significant normality on CBC, chemistry, coags. Her urinalysis is clear of infection. She has mild elevation of her ALT and AST. Her troponin is 0. Her electrocardiogram showed sinus rhythm without ST elevation. Her cardiac telemetry monitoring continues to show sinus rhythm without ectopy. The CT scan of her head did not show any acute intracranial process. Her chest x-ray was read out as no acute process. Updated patient abo ut results and she did have improvement in her headache after treatment but states that she still did not quite feel right. Her blood pressure has improved with treatment in the ED. With her history of having prior pulmonary embolism and complaining of right abdominal pain and having a history of cancer with partial nephrectomy will obtain a CT angio of the chest and a nonangio a bdomen/pelvis to evaluate for PE, aortic dissection, lymphadenopathy, thyroid mass, lung mass, abdominal mass, recurrent cancer with metastases, signs of renal artery occlusion. Progress Note #3: Time: 19:40 Progress Note No acute significant normality on the CT angiogram of the chest and no pulmonary embolism seen. The CT abdomen pelvis with contrast shows evidence of prior cholecystectomy, partial resection of the right kidney. Atrophy of the left kidney. No acute intra-abdominal or pelvic abnormality Will reassure patient and counseled to check back with Dr. Whalen about her thyr oid and symptoms. There were no obvious masses seen in her neck to explain her tenderness to palpation or to go along with thyroid disease. She also has no signs of lymphadenopathy in chest abdomen or pelvis. Reassured patient could be that she also has a virus since making her feel bad and causing headache and abnormal symptoms. Encourage fluids and rest. Follow-up through the clinic. ECG Initial ECG Impression Date: Jun 02, 2020 Initial ECG Impression Time: 18:29 Initial ECG Rate: 74 Initial ECG Rhythm: Normal Sinus Initial ECG Comparisson: No Previous ECG Available Comment Normal sinus rhythm with a heart rate of 74 bpm. NH interval [address] elevation. QT interval 396 ms with a QTc interval 440 ms. No prior tracing available for comparison. Diagnostic Imaging Diagonstic Imaging: Xray Plain Films/CT/US/NM/MRI: chest Comments [facility], [place] NAME: MARTI KUMAR [facility] REC#: [id number] PT STATUS: REG ER : 1980 PHYSICIAN: BRANDON GARCIA MD ADMIT DATE: 06/02/20/ER FS Draft Date of Exam:06/02/20 CHEST 1 VIEW AP/PA ONLY INDICATION: Hypertension and cardiac palpitation. EXAMINATION: Upright AP view of the chest was obtained. COMPARISON: Study of 08/27/2019. FINDINGS: Heart size and pulmonary vascularity are within normal limits and the lungs are clear, bilaterally. IMPRESSION: Unremarkable chest. Dictated on workstation # [id number] Dict: 06/02/20 1827 Trans: 06/02/20 183 [facility] [phone] Interpreted by: ROSALINDA PENDLETON MD Electronically signed by: Diagonstic Imaging: CT Plain Films/CT/US/NM/MRI: head Comments [facility], [place] NAME: MARTI KUMAR [facility] REC#: [id number] PT STATUS: REG ER : 1980 PHYSICIAN: BRANDON GARCIA MD ADMIT DATE: 06/02/20/ER FS Draft Date of Exam:06/02/20 CT HEAD WO PROCEDURE: CT head without contrast. TECHNIQUE: Multiple contiguous axial images were obtained through the brain without the use of intravenous contrast. Auto Exposure Controls were utilized during the CT exam to meet ALARA standards for radiation dose reduction. INDICATION: Hypertension and paresthesia. FINDINGS: CT head: CT images of the head were obtained. Ventricles and sulci are within normal limits for size. There is no intracranial hemorrhage identified. There is no abnormal mass effect or shift of midline structures. IMPRESSION: Unremarkable CT of the head. Dictated on workstation # [id number] Dict: 06/02/201827 Trans: 06/02/201831 [facility] [phone] Interpreted by: ROSALINDA PENDLETON MD Electronically signed by: Janisgobrian Imaging: CT Plain Films/CT/US/NM/MRI: chest, abdomen, pelvis Comments NAME: MARTI KUMAR [facility] REC#: [id number] PT STATUS: REG ER : 1980 PHYSICIAN: BRANDON GARCIA MD ADMIT DATE: 06/02/20/ER FS Draft Date of Exam:06/02/20 CT AYE CHEST/NOANG ABD-PELV W INDICATION: burning in chest to neck, headache, hx PE EXAMINATION: CTA chest, abdomen and pelvis. Thin axial sections through the chest, abdomen and pelvis are obtained following intravenous contrast bolus. Multiplanar MIP images were reconstructed and reviewed. All CT scans use one or more of the following dose optimizing techniques: automated exposure control, MA and/or KvP adjustment based on patient size and exam type or iterative reconstruction. CT chest: There is good opacification of pulmonary arteries without intraluminal filling defect. Thoracic aorta is of normal caliber. The lungs appear clear. No mass or infiltrate is identified. There is no evidence of pathologically enlarged adenopathy in the thorax. No significant pleural or pericardial fluid is identified. IMPRESSION: No CTA evidence of pulmonary embolism or other acute abnormality within the thorax. CT abdomen and pelvis: Gallbladder is surgically absent. No focal hepatic or splenic abnormality is identified. There is mild biliary ductal ectasia. No pancreatic or adrenal gland lesion is seen. There is small left kidney with small left main renal artery. Right kidney is unremarkable apart from an approximately 0.5 cm cyst in the upper pole region. There may be partial resection of the inferior pole of the right kidney. There is no free fluid within the abdomen or pelvis. Partially opacified urinary bladder is unremarkable. There is excretion of contrast from both kidneys. There is no evidence of localized inflammation. No bowel obstruction is identified. IMPRESSION: Previous cholecystectomy and possible resection from the inferior pole of the right kidney. There is left renal atrophy without other evidence of acute abnormality seen within the abdomen or pelvis. Dictated on workstation # [id number] Dict: 06/02/201926 Trans: 06/02/201935 [facility] [phone] Interpreted by: ROSALINDA PENDLETON MD Electronically signed by: Departure Impression Primary Impression: Occipital headache Additional Impressions: Heart palpitations Malaise and fatigue Disposition: 01 HOME, SELF-CARE Condition: Stable Departure-Patient Inst. Decision time for Depature: 19:46 Referrals: CONG WHALEN MD (PCP/Family) Primary Care Physician Patient Instructions: Headache, Adult ED, Palpitations (DC) Add. Discharge Instructions: Continue to drink plenty of fluids and stay well-hydrated. Avoid caffeinated and carbonated drinks. Try and get plenty of rest Follow-up with Dr. Whalen about your elevated thyroid test and see if this might be contributing to your symptoms. All discharge instructions reviewed with patient and/or family. Voiced understanding. BRANDON GARCIA MD Jun 02, 2020 18:49
[2020-06-02] MEDS ORDERED: NS 100 ML (IVPB) BAG IV ONE (19:00)
[2020-06-02] MEDS ORDERED: CATHETER FLUSH 10 ML SYR IV PRN (19:00)
[2020-06-02] MEDS ORDERED: IOHEXOL 350 MG/ML 100 ML (OMNIPAQUE 350) VIAL IV ONE (19:00)
[2020-06-02] MEDS ORDERED: HOLD METFORMIN - RECEIVED CONTRAST 20 ML VIAL IV SCH (19:00)
--- NOTE | 2020-06-02 19:37 | Diagnostic Imaging Report ---
INDICATION: burning in chest to neck, headache, hx PE EXAMINATION: CTA chest, abdomen and pelvis. Thin axial sections through the chest, abdomen and pelvis are obtained following intravenous contrast bolus. Multiplanar MIP images were reconstructed and reviewed. All CT scans use one or more of the following dose optimizing techniques: automated exposure control, MA and/or KvP adjustment based on patient size and exam type or iterative reconstruction. CT chest: There is good opacification of pulmonary arteries without intraluminal filling defect. Thoracic aorta is of normal caliber. The lungs appear clear. No mass or infiltrate is identified. There is no evidence of pathologically enlarged adenopathy in the thorax. No significant pleural or pericardial fluid is identified. IMPRESSION: No CTA evidence of pulmonary embolism or other acute abnormality within the thorax. CT abdomen and pelvis: Gallbladder is surgically absent. No focal hepatic or splenic abnormality is identified. There is mild biliary ductal ectasia. No pancreatic or adrenal gland lesion is seen. There is small left kidney with small left main renal artery. Right kidney is unremarkable apart from an approximately 0.5 cm cyst in the upper pole region. There may be partial resection of the inferior pole of the right kidney. There is no free fluid within the abdomen or pelvis. Partially opacified urinary bladder is unremarkable. There is excretion of contrast from both kidneys. There is no evidence of localized inflammation. No bowel obstruction is identified. IMPRESSION: Previous cholecystectomy and possible resection from the inferior pole of the right kidney. There is left renal atrophy without other evidence of acute abnormality seen within the abdomen or pelvis. Dictated by: Dictated on workstation # [id number]
[2020-06-02 19:47] VITALS: BP 121/84
== END 2020-06-02 19:55 | disposition home or self-care (01) ==
LOC: EDUNIT# 17:46 → ER FS 17:47
DX: R51.9 Headache, unspecified (principal); R00.2 Palpitations; R53.81 Other malaise; Z88.0 Allergy status to penicillin; Z88.2 Allergy status to sulfonamides; Z88.1 Allergy status to other antibiotic agents; Z88.5 Allergy status to narcotic agent; Z85.528 Personal history of other malignant neoplasm of kidney; Z79.52 Long term (current) use of systemic steroids
CPT/HCPCS: 36415; 70450; 71045; 71275; 74177; 80053; 81000; 83690; 83735; 83880; 84484; 85025; 85610; 85730; 93005; 93041

== ENCOUNTER → 2020-06-27 | Outpatient (CLI) | payer BC ==
[~2020-06-27] MED LIST changes: +BARIUM SUSPENSION 2.1% (VANILLA SILQ) 450 ML PO ONE; +CATHETER FLUSH 10 ML SYR IV PRN; +HOLD METFORMIN - RECEIVED CONTRAST 20 ML VIAL IV SCH; +IOHEXOL 350 MG/ML 100 ML (OMNIPAQUE 350) VIAL IV ONE; +NS 100 ML (IVPB) BAG IV ONE
--- NOTE | 2020-06-27 19:56 | Diagnostic Imaging Report ---
Procedure: CT abdomen with contrast only. Technique: Multiple contiguous axial images were obtained through the abdomen after the administration of intravenous contrast. Auto Exposure Controls were utilized during the CT exam to meet ALARA standards for radiation dose reduction. Date: June 27, 2020. Indication: 39-year-old female, elevated liver function test. History of right renal malignancy status post partial nephrectomy. Comparison: CT chest, abdomen and pelvis June 02, 2020. Findings: The visualized portions of the lung bases are clear. The heart is not enlarged. There is no identified pericardial effusion. The liver is unremarkable in size and contour. There is no identified liver lesion. The main, right and left portal veins are patent. The gallbladder is surgically absent. There is no intrahepatic or extrahepatic bile duct dilation. There is pancreas divisum. The main pancreatic duct is not abnormally dilated. Unremarkable appearance of the pancreatic parenchyma. The spleen is normal in size. The adrenal glands are unremarkable. There is a cortical defect of the inferior pole of the right kidney. There is a low signal right renal lesion measuring 8 mm in size on axial image 35 which is too small to characterize. There is severe atrophy of the left kidney. The urinary collecting systems are not distended. There is no identified renal stone. The imaged portions of the intestinal tract are not distended. There is a small fat-containing umbilical hernia. There is no identified abnormally enlarged lymph node in the abdomen meeting CT size criteria for adenopathy. There is no identified bone lesion concerning for a bone metastasis. There is no other acute bony abnormality. Impression: 1. Unremarkable CT appearance of the liver. 2. Status post cholecystectomy without biliary ductal dilation. 3. Cortical defect of the inferior pole of the right kidney most likely relating to provided history of partial nephrectomy. This is similar in appearance to prior exam. Stable 8 mm low-attenuation right renal lesion too small to characterize. 4. Severe atrophy of the left kidney. Dictated by: Dictated on workstation # [id number]
== END ==
LOC: RAD FS 15:14
PROVIDERS: ATTEND Family Medicine
DX: N26.1 Atrophy of kidney (terminal) (principal); N28.89 Other specified disorders of kidney and ureter; R79.89 Other specified abnormal findings of blood chemistry; Z85.53 Personal history of malignant neoplasm of renal pelvis; Z90.5 Acquired absence of kidney; Z90.49 Acquired absence of other specified parts of digestive tract
CPT/HCPCS: 74160

== ENCOUNTER 2020-08-20 10:00 | Outpatient (RCR) | payer BC ==
[~2020-08-20 10:00] MED LIST changes: -BARIUM SUSPENSION 2.1% (VANILLA SILQ) 450 ML PO ONE; -CATHETER FLUSH 10 ML SYR IV PRN; -HOLD METFORMIN - RECEIVED CONTRAST 20 ML VIAL IV SCH; -IOHEXOL 350 MG/ML 100 ML (OMNIPAQUE 350) VIAL IV ONE; -NS 100 ML (IVPB) BAG IV ONE
== END 2020-11-18 | disposition home or self-care (01) ==
LOC: CARD 10:00
PROVIDERS: ATTEND Internal Medicine Cardiovascular Disease
DX: I10 Essential (primary) hypertension (principal); C64.9 Malignant neoplasm of unspecified kidney, except renal pelvis; N18.9 Chronic kidney disease, unspecified; R00.2 Palpitations
CPT/HCPCS: 93270; 93306

== ENCOUNTER 2020-12-29 10:07 | Emergency (ER) | payer BC ==
[~2020-12-29] VITALS: Ht 154 cm; Wt 68.0 kg
[2020-12-29 10:23] LABS: BACTERIA,URINE MODERATE /HPF; BILIRUBIN,URINE NEGATIVE (NEGATIVE); CLARITY,URINE CLEAR; COLOR,URINE YELLOW; GLUCOSE, URINE (UA) NEGATIVE (NEGATIVE); KETONES,URINE NEGATIVE (NEGATIVE); LEUKOCYTE ESTERASE ,URINE 2+ (NEGATIVE); NITRITE,URINE NEGATIVE (NEGATIVE); PH,URINE 5.5 (5-9); PROTEIN,URINE NEGATIVE (NEGATIVE); RBC,URINE 0-2 /HPF
[2020-12-29 10:28] LABS: BASOPHILS % (AUTO) 0 % (0-10); EOSINOPHILS % (AUTO) 0 % (0-10); HEMATOCRIT 44 % (35-52); HEMOGLOBIN 14.9 g/dL (11.5-16.0); LYMPHOCYTES % (AUTO) 42 % (12-44); MEAN CORPUSCULAR HEMOGLOBIN 28 pg (25-34); MEAN CORPUSCULAR HGB CONC 34 g/dL (32-36); MEAN CORPUSCULAR VOLUME 83 fL (80-99); MEAN PLATELET VOLUME 9.4 fL (9.0-12.2); MONOCYTES % (AUTO) 7 % (0-12); NEUTROPHILS % (AUTO) 50 % (42-75); PLATELET COUNT 196 10^3/uL (130-400); WHITE BLOOD COUNT 5.7 10^3/uL (4.3-11.0)
[2020-12-29 10:29] LABS: LYMPHOCYTES # (AUTO) 2.4 X 10^3 (1.0-4.0); MONOCYTES # (AUTO) 0.4 X 10^3 (0.0-1.0); NEUTROPHILS # (AUTO) 2.9 X 10^3 (1.8-7.8)
[2020-12-29 10:46] LABS: CALCIUM 10.2 MG/DL (8.5-10.1); CREATININE SERUM 0.93 MG/DL (0.60-1.30); POTASSIUM 3.8 MMOL/L (3.6-5.0)
--- NOTE | 2020-12-29 10:54 | Diagnostic Imaging Report ---
PROCEDURE: CT urinary tract, rule out kidney stone. TECHNIQUE: Multiple contiguous axial images were obtained through the abdomen and pelvis without the use of intravenous contrast. Auto Exposure Controls were utilized during the CT exam to meet ALARA standards for radiation dose reduction. INDICATION: Bilateral flank pain. COMPARISON: 06/27/2020. FINDINGS: The heart is unremarkable. The lung bases are clear. Atrophy of the left kidney is stable. No evidence of hydronephrosis or renal calculi. Stable parapelvic cyst in the right kidney. Partial resection changes are seen in the inferior pole of the right kidney. No perinephric fat stranding is seen. The urinary bladder is decompressed. The liver, spleen, pancreas, and adrenal glands have a normal noncontrast CT appearance. The gallbladder is surgically absent. There is no pathologically enlarged mesenteric or retroperitoneal adenopathy. The bowel loops are nondilated. The appendix is visualized in the right lower quadrant and has a normal appearance. There is no free fluid or free air. No acute osseous abnormalities. There is no free air, loculated collection, or adenopathy in the pelvis. IMPRESSION: 1. Stable appearance of the kidneys without evidence of acute hydronephrosis or renal calculi. No perinephric fat stranding. Dictated by: Dictated on workstation # [id number]
[2020-12-29] MEDS ORDERED: cefTRIAXone 1,000 MG in WATER (STERILE) FOR INJECTION 10 ML IV ONE (12:00)
[2020-12-29] MEDS ORDERED: CEPH500T PO (12:08)
--- NOTE | 2020-12-29 12:08 | ED GU-Female ---
General Chief Complaint: Abdominal/GI Problems Stated Complaint: VIRI FLANK PAIN; SUPRAPUBIC PAIN Nursing Triage Note: RIGHT LOWER FLANK AND QUAD PAIN X 8 DAYS. PT REPORTS N/V. Source: patient Exam Limitations: no limitations History of Present Illness Date Seen by Provider: Dec 29, 2020 Time Seen by Provider: 10:10 Initial Comments Patient is a 40-year-old female with history of renal carcinoma, partial right nephrectomy, and atrophied left kidney who presents with suprapubic pain, burning, and right lower quadrant pain/tenderness. Symptoms began yesterday and gradually increased in duration and severity. Symptoms are mild to moderate. Patient denies nausea vomiting, fevers chills. No flank pain or CVA tenderness. Pain is worse with palpation and movement is partially relieved with rest. No hematuria. No other acute symptoms or complaints. Patient is currently in remission from renal cancer and is not on immunosuppressive therapy. Timing/Duration: yesterday Severity/Quality: moderate Location: suprapubic Radiation: suprapubic, other Activities at Onset: other Sexual Clever History: other Associated Symptoms: other Allergies and Home Medications Allergies Coded Allergies: Penicillins (Verified Allergy, Unknown, 04/17/09) sulfamethoxazole (Verified Allergy, Unknown, 08/27/19) tramadol (Verified Allergy, Unknown, 08/27/19) trimethoprim (Verified Allergy, Unknown, 08/27/19) Patient Home Medication List Home Medication List Reviewed: Yes Fentanyl (Fentanyl Patch 100 MCG) 1 Each Patch.td72, (Reported) Entered as Reported by: LAUREN MUNROE on 06/23/161640 Methylprednisolone (Medrol) 4 Mg Tab.ds.pk, 4 MG PO UD Prescribed by: TIM JESSICA on 12/24/162043 Oxycodone HCl/Acetaminophen (Oxycodone-Acetaminophen 5-325) 1 Each Tablet, (Reported) Entered as Reported by: LAUREN MUNROE on 06/23/161640 Promethazine HCl (Promethazine Tablet) 25 Mg Tablet, (Reported) Entered as Reported by: LAUREN MUNROE on 06/23/161640 Review of Systems Review of Systems Constitutional: see HPI EENTM: see HPI Respiratory: see HPI Gastrointestinal: see HPI Musculoskeletal: see HPI Skin: see HPI Psychiatric/Neurological: See HPI Endocrine: See HPI Hematologic/Lymphatic: See HPI All Other Systemes Reviewed Negative Unless Noted: Yes Past Xgpkraw-Scdbwm-Mgfecx Hx Immunizations Up To Date Influenza Vaccine Up-to-Date: Yes; Up-to-Date Past Medical History Surgeries: Yes (arthroscopic left knee surgery) Gallbladder, Hysterectomy, Nephrectomy, Orthopedic Respiratory: Yes Pulmonary Embolism Cardiac: Yes Deep Vein Thrombosis Neurological: Yes (postop RSD of left leg) Reproductive Disorders: Yes (fibroids) Female Reproductive Disorders: Endometriosis Gastrointestinal: No Musculoskeletal: No Endocrine: Yes (gestational DM) HEENT: No Cancer: Yes Kidney Did You Recieve Any Treatments: Yes What Type of Treatment Did You: Surgical Intervention Psychosocial: No Integumentary: No Blood Disorders: No Family Medical History No Pertinent Family Hx Physical Exam Vital Signs Vital Signs - First Documented 12/29/20 10:20 Temp 36.7 Pulse 74 Resp 18 B/P (MAP) 134/90 (105) Pulse Ox 99 O2 Delivery Room Air Capillary Refill : Less Than 3 Seconds Height, Weight, BMI Height: 5'1.00" Weight: 150lbs. 4.0oz. [id number]; 28.00 BMI Method:Stated General Appearance: mild distress, other HEENT: PERRL/EOMI Neck: non-tender, full range of motion, supple Respiratory: lungs clear, normal breath sounds Gastrointestinal: soft, other (Suprapubic pain) Back: no CVA tenderness, no vertebral tenderness; No CVA tenderness (R), No CVA tenderness (L) Extremities: normal range of motion, non-tender Neurologic/Psychiatric: special loan officer II-XII nml as tested, no motor/sensory deficits, oriented x 3 Progress/Results/Core Measures Suspected Sepsis SIRS Temperature: Pulse: 74 Respiratory Rate: 18 Laboratory Tests 12/29/20 10:25: White Blood Count 5.7 Blood Pressure 134 /90 Mean: 105 Laboratory Tests 12/29/20 10:25: Creatinine 0.93, Platelet Count 196 Results/Orders Lab Results Laboratory Tests Test 12/29/20 10:13 12/29/20 10:25 Range/Units Urine Color YELLOW Urine Clarity CLEAR Urine pH 5.5 5-9 Urine Specific [place] 1.020 1.016-1.022 Urine Protein NEGATIVE NEGATIVE Urine Glucose (UA) NEGATIVE NEGATIVE Urine Ketones NEGATIVE NEGATIVE Urine Nitrite NEGATIVE NEGATIVE Urine Bilirubin NEGATIVE NEGATIVE Urine Urobilinogen 0.2 < = 1.0 MG/DL Urine Leukocyte Esterase 2+ H NEGATIVE Urine RBC (Auto) NEGATIVE NEGATIVE Urine RBC 0-2 /HPF Urine WBC 5-10 H /HPF Urine Squamous Epithelial Cells 2-5 /HPF Urine Crystals NONE /LPF Urine Bacteria MODERATE H /HPF Urine Casts PRESENT /LPF Urine Hyaline Casts 2-5 H /LPF Urine Mucus LARGE H /LPF Urine Culture Indicated YES White Blood Count 5.7 4.3-11.0 10^3/uL Red Blood Count 5.33 H 3.80-5.11 10^6/uL Hemoglobin 14.9 11.5-16.0 g/dL Hematocrit 44 35-52 % Mean Corpuscular Volume 83 80-99 fL Mean Corpuscular Hemoglobin 28 25-34 pg Mean Corpuscular Hemoglobin Concent 34 32-36 g/dL Red Cell Distribution Width 11.7 10.0-14.5 % Platelet Count 196 130-400 10^3/uL Mean Platelet Volume 9.4 9.0-12.2 fL Immature Granulocyte % (Auto) 0 % Neutrophils (%) (Auto) 50 42-75 % Lymphocytes (%) (Auto) 42 12-44 % Monocytes (%) (Auto) 7 0-12 % Eosinophils (%) (Auto) 0 0-10 % Basophils (%) (Auto) 0 0-10 % Neutrophils # (Auto) 2.9 1.8-7.8 X 10^3 Lymphocytes # (Auto) 2.4 1.0-4.0 X 10^3 Monocytes # (Auto) 0.4 0.0-1.0 X 10^3 Eosinophils # (Auto) 0.0 0.0-0.3 10^3/uL Basophils # (Auto) 0.0 0.0-0.1 10^3/uL Immature Granulocyte # (Auto) 0.0 0.0-0.1 10^3/uL Sodium Level 141 135-145 MMOL/L Potassium Level 3.8 3.6-5.0 MMOL/L Chloride Level 103 98-107 MMOL/L Carbon Dioxide Level 28 21-32 MMOL/L Anion Gap 10 5-14 MMOL/L Blood Urea Nitrogen 5 L 7-18 MG/DL Creatinine 0.93 0.60-1.30 MG/DL Estimat Glomerular Filtration Rate 67 BUN/Creatinine Ratio 5 Glucose Level 90 70-105 MG/DL Calcium Level 10.2 H 8.5-10.1 MG/DL My Orders Orders - LIU BARAJAS DO Urinalysis (12/29/20 10:20) Cbc With Automated Diff (12/29/20 10:20) Basic Metabolic Panel (12/29/20 10:20) Ct Abd/Pelvis Wo(Kidney Stone) (12/29/20 10:20) Urine Culture (12/29/20 10:13) Vital Signs/I&O 12/29/20 10:20 Temp 36.7 Pulse 74 Resp 18 B/P (MAP) 134/90 (105) Pulse Ox 99 O2 Delivery Room Air Capillary Refill : Less Than 3 Seconds Blood Pressure Mean: 105 Departure Communication (Admissions) CT abdomen pelvis: No kidney stone identified, normal appendix. No change in kidney appearance from most recent prior exam. Patient with lower urinary tract infection without evidence of kidney stone or renal impairment. IV Rocephin given. Will treat empirically with PCP follow- up. Return precautions reviewed. Patient verbalizes understanding and agreement discharge instructions prior to departure. Impression Primary Impression: Suprapubic pain, acute Additional Impression: Lower urinary tract infection, acute Disposition: 01 HOME, SELF-CARE Condition: Stable Departure-Patient Inst. Decision time for Depature: 12:06 Referrals: CONG HINTON MD (PCP/Family) Primary Care Physician Patient Instructions: Urinary Tract Infection, Adult (DC) Add. Discharge Instructions: You were evaluated in the emergency department for pelvic pain and lower back pain. Lab and imaging studies were performed. Your evaluation is consistent with lower urinary tract infection without the presence of kidney stone. Please increase fluids and take newly prescribed medications as directed. Follow-up with your PCP in 2 to 3 days for reevaluation. Return to the ED if new or worsening symptoms. All discharge instructions reviewed with patient and/or family. Voiced understanding. Scripts Cephalexin (Cephalexin) 500 Mg Tablet 500 MG PO TID, #21 TAB Prov: LIU BARAJAS DO 12/29/20 LIU BARAJAS DO Dec 29, 2020 12:08
[2020-12-29 12:22] VITALS: BP 125/84
== END 2020-12-29 12:25 | disposition home or self-care (01) ==
LOC: EDUNIT# 10:07 → ER FS 10:08
DX: R10.30 Lower abdominal pain, unspecified (principal); N39.0 Urinary tract infection, site not specified
CPT/HCPCS: 36415; 74176; 80048; 81000; 85025; 87088; 96374

== ENCOUNTER → 2022-03-09 | Outpatient (CLI) | payer BC ==
[~2022-03-09] MED LIST changes: +CEPH500T PO
--- NOTE | 2022-03-09 08:52 | Diagnostic Imaging Report ---
PROCEDURE: CT chest without contrast. TECHNIQUE: Multiple contiguous axial images were obtained through the chest without the use of intravenous contrast. Auto Exposure Controls were utilized during the CT exam to meet ALARA standards for radiation dose reduction. INDICATION: Pulmonary nodule COMPARISON: 06/02/2020 and 08/28/2019 FINDINGS: No pathologically enlarged lymph nodes within the chest. No aneurysmal dilatation of thoracic aorta. No pericardial effusion. No pleural effusion. The trachea is clear. No pneumothorax. 0.2 cm left lower lobe pulmonary nodules, not significantly changed since the prior examination. 0.4 cm left lower lobe pulmonary nodule present, series 6, image 78. This is minimally increased in size since 202 when it measured 2 mm. Additionally, this is associated with a 1.8 cm peripheral region of groundglass pulmonary opacity. Additional 0.5 cm pulmonary nodule is noted within the right lower lobe, series 6, image 87, slightly increased in size since the prior exam. A few additional mild patchy groundglass opacities are identified within the lungs, including within the lingula and bilateral lower lobes peripherally. These are new from prior examination. Cholecystectomy. Atrophy of the left kidney. Visualized upper abdomen is otherwise unremarkable. No acute osseous abnormality. IMPRESSION: Bilateral pulmonary nodules as described above, largest measuring up to 0.5 cm within the right lower lobe. The right lower lobe pulmonary nodules have minimally increased since 2020. Given very gradual increase, a follow-up CT of the chest in 6 months is recommended to reevaluate. Mild patchy peripheral groundglass opacities within the lungs bilaterally. This is a nonspecific finding, though could relate to underlying infectious infiltrate. Given distribution, atypical infection including COVID 19 could be considered. Stable atrophy of the left kidney. Dictated by: Dictated on workstation # [id number]
== END ==
LOC: RAD FS 07:57
PROVIDERS: ATTEND Nurse Practitioner Family
DX: R91.8 Other nonspecific abnormal finding of lung field (principal); N26.1 Atrophy of kidney (terminal); Z90.49 Acquired absence of other specified parts of digestive tract
CPT/HCPCS: 71250

== ENCOUNTER 2022-07-21 13:32 | Emergency (ER) | payer BC ==
[~2022-07-21] VITALS: Ht 154.9 cm; Wt 67.6 kg
[2022-07-21 13:39] VITALS: BP 139/84
[2022-07-21] MEDS ORDERED: KETOROLAC 30 MG/ML VIAL IM STA (13:42)
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
--- NOTE | 2022-07-21 14:41 | Diagnostic Imaging Report ---
CT CHEST WO TECHNIQUE: Multiple contiguous axial images were obtained through the chest without the use of intravenous contrast. All CT scans use one or more of the following dose optimizing techniques: automated exposure control, MA and/or KvP adjustment based on a patient size and exam type, or iterative reconstruction. INDICATION: Lower anterior chest pain COMPARISON: 03/09/2022 FINDINGS: Lungs and airway: No abnormality in the trachea. No pneumonia or edema. No suspicious pulmonary nodules. Pleura: No pleural effusion or pneumothorax. Heart and mediastinum: Thyroid is normal. No supraclavicular or axillary lymphadenopathy. No mediastinal or hilar lymphadenopathy. Heart is normal in size without pericardial effusion. Normal caliber thoracic aorta. Upper abdomen: Cholecystectomy. Atrophic left kidney is stable in appearance. Musculoskeletal: No acute or healing rib fracture. Costal cartilage is intact. No sternal fracture. No fracture within the thoracic spine. IMPRESSION: 1. No acute or healing rib fracture. 2. No pneumonia or other acute intrathoracic process. Dictated by: Dictated on workstation # [id number]
[2022-07-21] MEDS ORDERED: METH-732 PO (15:37)
== END 2022-07-21 15:40 | disposition home or self-care (01) ==
LOC: EDUNIT# 13:32 → ER FS 13:34
DX: S29.011A Strain of muscle and tendon of front wall of thorax, initial encounter (principal); X50.1XXA Overexertion from prolonged static or awkward postures, initial encounter
CPT/HCPCS: 71250